=== PATIENT | female | born 1985 | race Asian ===

== ENCOUNTER → 2018-01-22 09:18 | Outpatient (POV) | payer BC, SELFPAY | PROVIDERS: Visit Provider Dentist | DX: Z00.00 Encounter for general adult medical examination without abnormal findings (principal) ==

== ENCOUNTER → 2018-05-26 14:02 | Outpatient (REF) | payer BC, SELFPAY ==
[2018-05-26 18:51] LABS: Free T4 (Free Thyroxine) 0.99 ng/dl (0.76-1.46); Thyroid Stimulating Hormone 1.14 uIU/ml (0.358-3.740)
== END ==
LOC: LAB 14:02
PROVIDERS: Visit Provider Nurse Practitioner Family
DX: R53.83 Other fatigue (principal)
CPT/HCPCS: 84439; 84443

== ENCOUNTER → 2019-03-11 11:44 | Outpatient (POV) | payer BC, SELFPAY | PROVIDERS: Visit Provider Dentist | DX: Z00.00 Encounter for general adult medical examination without abnormal findings (principal) ==

== ENCOUNTER 2023-01-09 17:09 | Emergency (ER) | payer OTHER, SELFPAY ==
--- NOTE | 2023-01-09 17:38 | EXP.UTC ---
Discharge Plan Disposition Patient Disposition: Home, Self-Care Condition: Good Prescriptions Prescriptions: No Action No Known Home Medications Referrals Follow up/Referrals: Huber Quinonez MD [Primary Care Provider] - See instructions Activity Restrictions/Add. Instructions Additional Instructions/Restrictions: Drink plenty of fluids. Take tylenol for pain or fever. Return if you begin to have difficulty breathing. Follow up with your regular doctor. GO TO THE ER FOR ANY WORSENING SYMPTOMS Quarantine until you know the results of your covid-19 test. Notify your school or workplace of your results and follow their instructions regarding return to work/school. Clinical Impressions Clinical Impression: Acute viral syndrome Instructions Patient Instructions: DI for Viral Syndrome [place]charge ED [place] [facility] [place] General Stated complaint: no tasteor smell both ears pain Time Seen by Provider: 01/09/23 17:35 History of Present Illness Provider Complaint: She states that for the past 4 days she has had fatigue, malaise, no taste, no smell, a dry cough, scratchy sore throat, and a very poor appetite. 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 Related Data Home Medications Medication Instructions Recorded Confirmed No Known Home Medications 09/25/21 09/25/21 Allergies Allergy/AdvReac Type Severity Reaction Status Date / Time No Known Allergies Allergy Verified 09/25/21 11:11 [facility] Disclaimer: The information contained in this section may have been updated after the patient was seen, as this information can be updated by other users. Social History Smoking Status: Never smoker alcohol intake: never substance use type: denies use current occupational status: employed Travel in the last 8 weeks: None ROS Obtained: Yes All systems reviewed & no additional complaints except as documented Constitutional Constitutional: Reports chills and Reports fever(s) Eyes Eyes: Denies eye discharge ENT Ears, Nose, Mouth, and Throat: Reports as per HPI Cardiovascular Cardiovascular: Denies chest pain Respiratory Respiratory: Denies chest congestion and Reports cough Gastrointestinal Gastrointestingal: Reports nausea; Denies abdominal pain, constipation, cramping, diarrhea or vomiting Musculoskeletal Musculoskeletal: Denies arthralgias Integumentary/Breasts Skin/Breast: Denies rash Neurologic Neurologic: Denies paresthesias Physical Exam General General appearance: alert and in no apparent distress Head Head exam: atraumatic, normocephalic and normal inspection Eye Eye exam: Present normal appearance, PERRL and EOMI ENT ENT exam: Present normal exam, normal oropharynx, mucous membranes moist, TM's normal bilaterally and normal external ear exam Neck Neck exam: Present normal inspection, full ROM and trachea midline; Absent meningismus or lymphadenopathy Chest Chest inspection: Present normal inspection and symmetric chest wall rise; Absent tenderness Respiratory Respiratory exam: Present normal lung sounds bilaterally; Absent respiratory distress Cardiovascular Cardiovascular exam: Present regular rate and normal rhythm; Absent JVD Abdominal Exam Abdominal exam: Present soft and normal bowel sounds; Absent distention, tenderness or guarding Extremities Exam Extremities exam: Present normal inspection, full ROM and normal capillary refill; Absent calf tenderness Back Exam Back exam: Present normal inspection; Absent tenderness Neurological Exam Neurological exam: Present alert and oriented X3 Psychiatric Psychiatric exam: Present normal affect and normal mood Skin Skin exam: Present warm, dry, intact and normal color Lymphatic Lymphatic Findings: no adenopathy Medical Decision Making Medical Records Medical records reviewed: No I reviewed the patient's medical
[2023-01-09 17:39] VITALS: BP 131/71; PULSE 77; RESP 18; TEMP 36.7; O2SAT 98; BMI 20.5
[2023-01-09 18:05] VITALS: BP 131/71; PULSE 77; RESP 18; TEMP 36.7; O2SAT 98
== END 2023-01-09 18:09 | disposition home or self-care (01) ==
LOC: UTC 18:11
PROVIDERS: Emergency Provider Nurse Practitioner Family; PCP Internal Medicine Adolescent Medicine
DX: R53.81 Other malaise (principal); R53.83 Other fatigue; R05.1 Acute cough; H92.03 Otalgia, bilateral; R07.0 Pain in throat; R50.9 Fever, unspecified; R63.0 Anorexia; B34.9 Viral infection, unspecified; Z20.822 Contact with and (suspected) exposure to COVID-19
CPT/HCPCS: 99212; 99213; C9803; G0463; U0003; U0005

== ENCOUNTER 2023-01-12 14:59 | Emergency (ER) | payer OTHER, SELFPAY ==
[2023-01-12 15:16] VITALS: BP 152/94; PULSE 72; RESP 18; TEMP 36.6; O2SAT 98; BMI 20.1
--- NOTE | 2023-01-12 16:20 | HMH.EDGENADL ---
Discharge Plan Disposition Patient Disposition: Home, Self-Care Condition: Good Prescriptions Prescriptions: New dexamethasone 6 mg tablet 10 mg PO Q24H 5 Days Qty: 9 0RF Rx Instructions: for up to 10 days ondansetron HCl 4 mg tablet 4 mg PO Q8H 4 Days Qty: 12 0RF Referrals Follow up/Referrals: Huber Quinonez MD [Primary Care Provider] - See instructions Activity Restrictions/Add. Instructions Additional Instructions/Restrictions: Take 10 mg Decadron daily for 5 days. Take Tylenol 1000 mg every 6 hours (4 times daily) and ibuprofen 400 mg every 6 hours (4 times daily) as needed with food and water to prevent GI upset and kidney damage. Follow-up with your primary care provider regarding this visit to the emergency department to establish care and ensure improvement in symptoms Clinical Impressions Clinical Impression: Post-COVID chronic fatigue Discharge ED Provider: Danny Mcmillan General Adult HPI General Chief complaint: Weakness Stated complaint: SOA, congestion, h/a Time Seen by Provider: 01/12/23 15:26 Mode of Arrival: Ambulatory Source of Information: Patient Limitations: Language Barrier Description of Symptoms (Recalled from ER Triage Doc. by RN): Presents via POV d/t feeling very tired. Covid + x 7-8 days. Requesting nutritional injection and/or protein'. History of Present Illness HPI narrative: This is an otherwise healthy 37-year-old female with recent diagnosis of COVID-19 7 days prior to arrival who is presenting with fatigue and body aches. Patient states that he is getting worse over the past 7 days. Intermittent shortness of breath that is not exertional and not associate with chest pain, cough, nausea, vomiting. She has been taking Tylenol throughout the day, but has had very little improvement. Has had associated decreased p.o. intake, although is tolerating p.o. intake and urinating and producing bowel movements per normal. No other concerning signs or symptoms and has not had fever in over a week. Related Data Previous Rx's Medication Instructions Recorded dexamethasone 6 mg tablet 10 mg PO Q24H 5 days #9 tabs 01/12/23 ondansetron HCl 4 mg tablet 4 mg PO Q8H 4 days #12 tabs 01/12/23 Allergies Allergy/AdvReac Type Severity Reaction Status Date / Time No Known Allergies Allergy Verified 09/25/21 11:11 [facility] Disclaimer: The information contained in this section may have been updated after the patient was seen, as this information can be updated by other users. Social History Smoking Status: Never smoker alcohol intake: never substance use type: denies use current occupational status: employed Travel in the last 8 weeks: None ROS Obtained: Yes All systems reviewed & no additional complaints except as documented Physical Exam General General appearance: alert and in no apparent distress Head Head exam: atraumatic, normocephalic and normal inspection Eye Eye exam: Present normal appearance, PERRL and EOMI ENT ENT exam: Present normal exam, normal oropharynx, mucous membranes moist, TM's normal bilaterally and normal external ear exam Neck Neck exam: Present normal inspection, full ROM and trachea midline; Absent meningismus or lymphadenopathy Chest Chest inspection: Present normal inspection and symmetric chest wall rise; Absent tenderness Respiratory Respiratory exam: Present normal lung sounds bilaterally; Absent respiratory distress Cardiovascular Cardiovascular exam: Present regular rate and normal rhythm; Absent JVD Abdominal Exam Abdominal exam: Present soft and normal bowel sounds; Absent distention, tenderness or guarding Extremities Exam Extremities exam: Present normal inspection, full ROM and normal capillary refill; Absent calf tenderness Back Exam Back exam: Present normal inspection; Absent tenderness Neurological Exam Neurological exam: Present alert and oriented X3 Psychia
[2023-01-12 16:29] VITALS: BP 134/88; PULSE 72; RESP 18; TEMP 36.6; O2SAT 98
== END 2023-01-12 16:30 | disposition home or self-care (01) ==
PROVIDERS: Emergency Provider Emergency Medicine; PCP Internal Medicine Adolescent Medicine
DX: R06.02 Shortness of breath (principal); R53.1 Weakness; M79.10 Myalgia, unspecified site; U09.9 Post COVID-19 condition, unspecified
CPT/HCPCS: 99283; 99284

== ENCOUNTER 2023-01-15 12:47 | Emergency (ER) | payer OTHER, SELFPAY ==
[2023-01-15 13:00] VITALS: BP 124/67; PULSE 69; RESP 20; TEMP 36.7; O2SAT 97; BMI 21.9
--- NOTE | 2023-01-15 13:06 | XR_ITS ---
FINAL REPORT CLINICAL HISTORY: cough COMPARISON: 10/06/2019 FINDINGS: Two views of the chest were obtained. The heart size and pulmonary vascularity are within normal limits. The mediastinum is normal. No acute pulmonary abnormality is identified. There is no pneumothorax. The bony thorax is intact. IMPRESSION: No active cardiopulmonary disease. Reviewed, Interpreted and Dictated by Dieter Subramanian III, MD Transcribed by Ly Elizabeth Authenticated and [facility]
--- NOTE | 2023-01-15 14:00 | EXP.UTC ---
Discharge Plan Disposition Patient Disposition: Home, Self-Care Condition: Good Prescriptions Prescriptions: New azithromycin [Zithromax] 250 mg tablet 250 mg PO UD DOSE PK Qty: 6 0RF Rx Instructions: Take two (2) tablets today, then one (1) tablet days #2 thru #5 methylprednisolone 4 mg Tablets,Dose Pack 4 mg PO DIRECTED Qty: 21 0RF benzonatate [benzonatate] 100 mg capsule 100 mg PO TIDP PRN (Reason: Cough) Qty: 30 0RF Referrals Follow up/Referrals: Huber Quinonez MD [Primary Care Provider] - See instructions Activity Restrictions/Add. Instructions Additional Instructions/Restrictions: Drink plenty of fluids. Take tylenol or ibuprofen for pain or fever. Take the medications as directed. Follow up with your regular doctor. GO TO THE ER FOR ANY WORSENING SYMPTOMS Clinical Impressions Clinical Impression: Acute bronchitis, Pleurisy Instructions Patient Instructions: Pleurisy, DI for Pleurisy Discharge ED Provider: Santiago Lacy [facility] General Stated complaint: body aches, lung pain Mode of Arrival: Ambulatory Source of Information: Patient Limitations: No Limitations Time Seen by Provider: 01/15/23 14:00 Description of Symptoms (Recalled from Triage Doc. by RN): hurts in linch, tired, body aches, covid 10 days ago HEENT Symptoms (Recalled from RN notes): Yes Resp Symptoms (Recalled from RN notes): No Skin Symptoms (Recalled from RN notes): No MS Symptoms (Recalled from RN notes): No Functional Status (Recalled from RN notes): n/a History of Present Illness Provider Complaint: She states that she has continued to have fatigue, cough, and pleuritic type chest pain. She tested negative for covid-19 on her last visit here. Related Data Previous Rx's Medication Instructions Recorded azithromycin 250 mg tablet 250 mg PO UD DOSE PK #6 tabs 01/15/23 (Zithromax) benzonatate 100 mg capsule 100 mg PO TIDP PRN Cough #30 caps 01/15/23 methylprednisolone 4 mg tablets in 4 mg PO DIRECTED #21 tabs 01/15/23 a dose pack Allergies Allergy/AdvReac Type Severity Reaction Status Date / Time No Known Allergies Allergy Verified 01/15/23 13:13 Worker's Comp Is this a Worker's Comp case?: No PFSH [facility] Disclaimer: The information contained in this section may have been updated after the patient was seen, as this information can be updated by other users. Social History Smoking Status: Never smoker alcohol intake: never substance use type: denies use current occupational status: employed Travel in the last 8 weeks: None ROS Obtained: Yes All systems reviewed & no additional complaints except as documented Constitutional Constitutional: Reports as per HPI, Reports chills and Denies fever(s) Eyes Eyes: Denies eye discharge ENT Ears, Nose, Mouth, and Throat: Denies dizziness, Denies otalgia and Denies sore throat Cardiovascular Cardiovascular: Denies chest pain Respiratory Respiratory: Denies shortness of breath, Reports chest congestion, Denies cough, Denies stridor and Denies wheezing Gastrointestinal Gastrointestingal: Denies nausea or vomiting Musculoskeletal Musculoskeletal: Reports system reviewed and no additional complaints, except as documented and Denies arthralgias Integumentary/Breasts Skin/Breast: Denies rash Neurologic Neurologic: Denies dizziness and Denies paresthesias Allergic/Immunologic Allergic/Immunologic: Denies wheezing Physical Exam General General appearance: alert and in no apparent distress Head Head exam: atraumatic, normocephalic and normal inspection Eye Eye exam: Present normal appearance, PERRL and EOMI ENT ENT exam: Present normal exam, normal oropharynx, mucous membranes moist, TM's normal bilaterally and normal external ear exam Neck Neck exam: Present normal inspection, full ROM and trachea midline; Absent meningismus or lymphadenopathy Chest Chest inspection: P
[2023-01-15 14:37] VITALS: BP 124/67; PULSE 69; RESP 20; TEMP 36.7; O2SAT 97
== END 2023-01-15 14:37 | disposition home or self-care (01) ==
PROVIDERS: Emergency Provider Nurse Practitioner Family; PCP Internal Medicine Adolescent Medicine
DX: J20.9 Acute bronchitis, unspecified (principal); R09.1 Pleurisy; R53.83 Other fatigue
CPT/HCPCS: 71046; 99212; 99214; G0463

== ENCOUNTER → 2023-03-24 12:15 | Outpatient (CLI) | payer OTHER, SELFPAY ==
--- NOTE | 2023-03-24 12:22 | XR_ITS ---
FINAL REPORT CLINICAL HISTORY: low back pain FINDINGS: 5 views of the lumbar spine were obtained. There is no evidence of fracture or dislocation. There is mild leftward curvature. The vertebral alignment is otherwise normal. Disc spaces are preserved. No paraspinous soft tissue abnormalities identified. IMPRESSION: No acute bony abnormality. Reviewed, Interpreted and Dictated by Dieter Subramanian III, MD Transcribed by Lynne Rosado Authenticated and [facility]
== END ==
PROVIDERS: PCP Internal Medicine Adolescent Medicine; Visit Provider Nurse Practitioner Family
DX: M54.50 Low back pain, unspecified (principal); M54.16 Radiculopathy, lumbar region
CPT/HCPCS: 72110

== ENCOUNTER → 2023-05-26 13:58 | Outpatient (CLI) | payer OTHER, SELFPAY ==
--- NOTE | 2023-05-26 14:02 | XR_ITS ---
FINAL REPORT CLINICAL HISTORY: bilateral knee pain FINDINGS: Left knee Three views were obtained. There is no acute fracture or dislocation. The joint spaces appear normal. No joint effusion is identified. No soft tissue abnormality is identified. IMPRESSION: No acute process. Reviewed, Interpreted and Dictated by Rashawn Nails MD Transcribed by Sara Witt Authenticated and [facility]
--- NOTE | 2023-05-26 14:02 | XR_ITS ---
FINAL REPORT CLINICAL HISTORY: bilateral knee pain FINDINGS: Right knee Three views were obtained. There is no acute fracture or dislocation. The joint spaces appear normal. No joint effusion is identified. No soft tissue abnormality is identified. IMPRESSION: No acute process. Reviewed, Interpreted and Dictated by Rashawn Nails MD Transcribed by Sara Witt Authenticated and [facility]
== END ==
PROVIDERS: PCP Internal Medicine Adolescent Medicine; Visit Provider Student in an Organized Health Care Education/Training Program
DX: M25.561 Pain in right knee (principal); M25.562 Pain in left knee
CPT/HCPCS: 73562

== ENCOUNTER 2023-06-22 10:21 | Emergency (ER) | payer OTHER, SELFPAY ==
[2023-06-22 10:35] VITALS: BP 157/88; PULSE 72; RESP 20; TEMP 36.8; O2SAT 96; BMI 22.0
[2023-06-22 10:47] LABS: UTC Influenza A Antigen Negative (Negative); UTC Influenza B Antigen Negative (Negative)
--- NOTE | 2023-06-22 10:51 | EXP.UTC ---
Discharge Plan Disposition Patient Disposition: Home, Self-Care Condition: Good Prescriptions Prescriptions: New ondansetron 4 mg tablet,disintegrating 4 mg PO Q8H PRN (Reason: nausea and vomiting) Qty: 10 0RF No Action cyclobenzaprine 10 mg tablet 10 mg PO HS naproxen 500 mg tablet 500 mg PO BID Qty: 20 0RF Referrals Follow up/Referrals: Provider,Referral, MD [Primary Care Provider] - See instructions Activity Restrictions/Add. Instructions Additional Instructions/Restrictions: *Monitor Temp, Over the counter Motrin or Tylenol as directed/as needed Tylenol every 4 hours and Motrin every 6 hours (as long as your family doctor has told you that you can take it) for fever or pain. and straight to ER if unable to lower temp less than 101.0 after medication given *Warm salt water gargles may help to soothe the throat *Throat Lozenges? *Warm fluids like tea with honey may help to soothe the throat? *Sleep elevated *Humidifier/Vaporizer Follow up IMMEDIATELY for new or worsening symptoms or no Noticeable improvement over the next 48-72 hours. 911 for difficulty breathing or swallowing You were tested for today for Upper Respiratory Panel with COVID19 your test result should be back in the next 24-48 hours, you may check your results on the [facility] [employer] [facility] Clinical Impressions Clinical Impression: Viral syndrome Stand Alone Forms Stand Alone Forms: Work/School Release Instructions Patient Instructions: DI for Viral Syndrome, Nausea and Vomiting-Adult Discharge ED Provider[place]oyda [place] [facility] [place] General Stated complaint: weakness, congestion, vomiting, unable to eat Mode of Arrival: Ambulatory Source of Information: Patient Limitations: No Limitations Time Seen by Provider: 06/22/23 10:51 Description of Symptoms (Recalled from Triage Doc. by RN): PATIENT C/O FATIGUE, DECREASED APPETITE, BACK ACHE, AND HEADACHE X 2 DAYS HEENT Symptoms (Recalled from RN notes): Yes Resp Symptoms (Recalled from RN notes): No Skin Symptoms (Recalled from RN notes): No MS Symptoms (Recalled from RN notes): No Functional Status (Recalled from RN notes): WNL History of Present Illness Provider Complaint: Patient states that for the last couple of days she has been having body aches, chills, nausea, upset stomach, fatigue and decreased appetite States that she feels like she did when she had COVID States that she has vomited several times today Related Data Home Medications Medication Instructions Recorded Confirmed cyclobenzaprine 10 mg tablet 10 mg PO HS 05/22/23 05/22/23 Previous Rx's Medication Instructions Recorded naproxen 500 mg tablet 500 mg PO BID #20 tabs 05/22/23 ondansetron 4 mg disintegrating 4 mg PO Q8H PRN nausea and 06/22/23 tablet vomiting #10 tabs Allergies Allergy/AdvReac Type Severity Reaction Status Date / Time No Known Allergies Allergy Verified 05/22/23 13:14 Worker's Comp Is this a Worker's Comp case?: No [facility] Disclaimer: The information contained in this section may have been updated after the patient was seen, as this information can be updated by other users. Medical History Acute bronchitis Acute viral syndrome Pleurisy Post-COVID chronic fatigue Social History Smoking Status: Never smoker alcohol intake: never substance use type: denies use current occupational status: employed Travel in the last 8 weeks: None ROS Obtained: Yes All systems reviewed & no additional complaints except as documented and Yes Systems reviewed as appropriate & no additional complaints except as documented Constitutional Constitutional: Reports system reviewed and no additional complaints, except as documented, Reports as per HPI, Reports body ache, Reports chills, Reports fatigue and Reports headache(s) ENT E
[2023-06-22 11:02] VITALS: BP 157/88; PULSE 72; RESP 20; TEMP 36.8; O2SAT 96
== END 2023-06-22 11:10 | disposition home or self-care (01) ==
PROVIDERS: Emergency Provider Nurse Practitioner
DX: R11.2 Nausea with vomiting, unspecified (principal); R53.83 Other fatigue; M79.18 Myalgia, other site; B34.9 Viral infection, unspecified
CPT/HCPCS: 87804; 99212; 99214; G0463

== ENCOUNTER 2024-12-08 09:18 | Outpatient (CLI) | payer OTHER, SELFPAY | END 2024-12-08 23:59 | disposition home or self-care (01) | LOC: LAB.DROPOF 12-10 09:20 | PROVIDERS: PCP Nurse Practitioner Family; Visit Provider Nurse Practitioner Family | DX: N39.0 Urinary tract infection, site not specified (principal) | CPT/HCPCS: 87086 ==

== ENCOUNTER 2024-12-13 07:47 | Outpatient (RCR) | payer OTHER, SELFPAY ==
--- NOTE | 2024-12-13 09:48 | HMH.PTOPEV ---
PT Outpatient Evaluation Rehab PT Outpatient Evaluation Start: 12/13/24 09:22 Freq: Status: Active Protocol: Document 12/13/24 09:22 BRANDT (Rec: 12/13/24 09:47 BRANDT [id number]) E-signed By Zeke Anderson, PT Outpatient Therapy Subjective History Subjective History Pt is a 39 yof who is referred to [facility] outpatient Physical Therapy with complaints of low back pain that occasionally refers into her left lower extremity. 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 She reports that her back often feels, too tight. She is an aquaculture worker of a local restaurant. She reports that her pain is worsened with bending, squatting, lifting, standing, walking and sitting for longer periods. Pt denies any other significant PMH or surgeries. New diagnosis of cancer in past 12 No months? Chief Complaint Pain Symptom Type Sharp Symptoms Relieved By Heat Symptoms Aggravated By Sitting,Standing,Bending/ Stooping,Physical Activity, Twisting,Walking,Lifting Prior Functional Limitations None Current Functional Limitations Lifting,Housework,Standing, Sitting,Walking,Bending/ Stooping Symptom Description Constant but Variable Level of pain today (0-10) 4 Pain scale - at its best (0-10) 2 Pain scale - at its worst (0-10) 8 Lumbopelvic Eval Posture Thoracic Spine Posture Standing Position Neutral Lumbar Spine Posture Standing Position Neutral Palapation tenderness left lumbar spinal tenderness Yes: 3/4 to L2-L3 paraspinal tenderness Yes: 3/4 to L2-L3 Accessory Movement L2 left L3 left Range of Motion Lumbar Spine Active Flexion Range of 50% Motion (degrees) Lumbar Spine Active Extension Range of 50% Motion (degrees) Left Lumbar Spine Lateral Flexion Active 50% Range of Motion (degrees) Right Lumbar Spine Lateral Flexion 50% Active Range of Motion (degrees) Lumbar Spine ROM Limitations Soft Tissue Tightness,Pain Manual Muscle Test Bilateral Knee Extension Strength Grade 4 Good Knee Flexion Strength Grade 4 Good Hip Flexion Strength Grade 3+ Fair+ Hip Abduction Strength Grade 3+ Fair+ Hip Adduction Strength Grade 3+ Fair+ Hip Extension Strength Grade 3+ Fair+ DTR Rt Patellar 2+ Lt Patellar 2+ Rt Gastroc/Soleus 1+ Lt Gastroc/Soleus 1+ Altered Sensation Bilateral LE Dermatome Level L2,L3,L4,L5,S1 Comment Intact Special Tests Lumbar Spine Screen Positive Anterior/Posterior Rib Compression Test Negative Left Rib Inspiration/Expiration Breathing Negative Test Hip Sitting Root Test Negative Left,Negative Right Forward Bending Test- Sitting Negative Right Hip Scouring (Quadrant) Test Negative Left,Negative Right Hip Vijay (KATHLEEN) Test Negative Left,Negative Right Sciatic Nerve Tension Test Negative Left Hip 90-90 Straight Leg Raise Test Negative Right Hip Thalia's Test Negative Left,Negative Right Sacroiliac Joint Compression Test Negative Left,Negative Right Sacroiliac Joint Distraction Test Negative Left,Negative Right Oswestry Index Section 1 Pain Intensity The pain is severe and does not vary much Section 2 Personal Care (Washing,Dresing) my way of washing or dressing even though it causes some pain Section 3 Lifting I can only lift very light weights at most Section 4 Walking I cannot walk at all without increasing pain Section 5 Sitting Pain prevents me from sitting for more than 1/2 hour Section 6 Standing I cannot stand more than 1/2 hour without increasing pain Section 7 Sleeping Because of my pain, my normal night's sleep is less than 4 hours Section 8 Social Life Pain has restricted my social life and I do not go out often Section 9 Traveling I get some pain when traveling , but none of my usual forms of travel m Section 10 Changing Degreee of Pain My pain is neither getting better or worse Score and Risk Level Oswestry Sc 32 Oswestry Risk Level Severe Disability Outpatient Therapy Assessment Impairments Problems/Impairmments Palpation Tenderness,Impaired Range of Motion,Impaired Strength,Impaired Walking, Impaired Standing,Impaired Sitting,Impaired Lifting, Impaired Bending,Subjective C/ O Pain Prognosis Rehab Potential Good Comment w HEP Compliance Clinical Impression Consistent with Diagnosis Yes Consistent with LBP with referred pain Additional details: Pt presents with signs and symptoms consistent with LBP with referred pain. Pt would benefit from skilled PT in order to address her above impairments, prevent further injury, improve quality of life and promote a return to her PLOF. Short Term Goals Number of Weeks 4 Decreased Palpation Tenderness Yes: 1-2/4 to L2-L3 Increase Range of Motion Yes: 75% WNL Lumbar AROM Increase Strength Yes: 4/5 B hips/knees MMT Increase Ability to Stand Yes: 30 minutes without increasing pain Increase Ability to Sit Yes: 30 minutes without increasing pain Restore Ability to Lift Objects to Waist Yes: 10# without increasing Level pain Improve Oswestry Score Yes: Mod Disability Decrease Subjective C/O Pain Yes: 5/10 with above assessment Patient to be Ind w/ HEP Yes Enamel Buffer Goals Number of Weeks 8 Decreased Palpation Tenderness Yes: 0-1/4 to L2-L3 Increase Range of Motion Yes: 75-100% WNL AROM of Lumbar Spine Increase Strength Yes: 4+/5 to B hips/knees Increase Ability to Stand Yes: 1 hour without increasing pain Increase Ability to Sit Yes: 1 hour without increasing pain Restore Ability to Lift Objects to Waist Yes: 20# without increasing Level pain Improve Oswestry Score Yes: Mild Disability Decrease Subjective C/O Pain Yes: 2-10 with above assessment Patient to be Ind w/ Advanced HEP Yes Outpatient Therapy Plan of Care Treatment Plan May Include Therapeutic Exercise Including Home Yes Exercise Program Manual Therapy Techniques Yes Neuromuscular Re-education Yes Therapeutic Activities to Return to Yes Previous Functional/Work Level Gait Training Yes ADL/Self Care Education Yes Mechanical Traction Yes Dry Needling Yes Thermal Modalities Yes Electrical Stimulation Yes Manual Lymphatic Drainage Yes Eval/Re-Eval Yes Frequency Times per week 2 Duration Number of Weeks 8 Addendums This patient is a candidate for social No or vocational rehab? Patient/Guardian verbally acknowledges Yes understanding of treatment program and consents to further treatment? Patient/Guardian verbally acknowledges Yes understanding of diagnosis, prognosis and goals for treatment? Eval Complexity PT Charges 52544 - Moderate Complexity Shoulder/Elbow Eval Shoulder Objective Measurements Elbow Objective Measurements PHYSICIAN CERTIFICATION: I certify the specified therapy services for Zenaida Maher are required, authorized, and reviewed every 30 days.
== END 2024-12-13 23:59 | disposition home or self-care (01) ==
LOC: PT 07:47
PROVIDERS: PCP Nurse Practitioner Family; Visit Provider Nurse Practitioner Family
DX: M54.50 Low back pain, unspecified (principal); R29.898 Other symptoms and signs involving the musculoskeletal system
CPT/HCPCS: 97163

== ENCOUNTER 2025-01-10 13:55 | Outpatient (CLI) | payer OTHER, SELFPAY ==
--- NOTE | 2025-01-10 14:10 | US_ITS ---
PROCEDURE: US TRANSVAGINAL CLINICAL INDICATION: pelvic pain COMPARISON: No exams were available for comparison FINDINGS: Transvaginal sonographic images of the pelvis were obtained. UTERUS: 10.1cm x 7.8cmx 4.8 cm anteverted with a combined endometrial thickness of 16.8mm. The endometrium appears in homogeneous. She has a 1.4 cm nabothian cyst in the cervix. There is a 2nd smaller nabothian cyst anteriorly. LEFT OVARY: 2.8 cmx1.7 cmx1.8cm with a volume of 4.5ml. There is a dominant follicle measuring 1.1 cm x 0.8 cm x 1.0 cm. There are multiple small peripheral follicles. RIGHT OVARY: 2.5cmx 3.3cmx2.5cm with a volume of 10.5ml. There are multiple small peripheral follicles. Both ovaries are seen and appear normal. Doppler flow to both ovaries are seen. There is no fluid in the cul-de-sac. IMPRESSION: 1. Anteverted, bulky uterus. The endometrium is thickened measuring up to 16.8 mm and the endometrium has an in homogeneous appearance. 2. The myometrial/endometrial margin appears irregular and could represent adenomyosis. 3. Both ovaries are seen and appear normal. There is a dominant follicle in the left ovary. Both ovaries have multiple small peripheral follicles. 4. No fluid in the cul-de-sac. Dictated by: Tejas Sam MD 01/10/2025 16:31 Tejas Sam MD in [facility] 01/10/2025 16:31
--- NOTE | 2025-01-10 14:10 | US_ITS ---
FINAL REPORT CLINICAL HISTORY: N13.30 - Unspecified hydronephrosis COMPARISON: None FINDINGS: RENAL ULTRASOUND Ultrasound images of the kidneys were obtained. The right kidney measures 11.7 cm in length. It is normal echogenicity. There is no hydronephrosis. The left kidney measures 12.0 cm in length. It is normal echogenicity. There is no hydronephrosis. IMPRESSION: Normal renal ultrasound. Reviewed, Interpreted and Dictated by Rene Tate MD Transcribed by Rocío Gustafson Authenticated and [facility]
[2025-01-10 14:52] LABS: Basophils # 0.1 K/mm3 (0-0.2); Basophils % 1.3 % (0.1-2.0); Eosinophils # 0.2 K/mm3 (0.0-0.4); Eosinophils % 2.5 % (0.1-12.0); Hematocrit 40.3 % (37.0-47.0); Hemoglobin 13.3 g/dL (12.2-16.2); Lymphocytes # 1.6 K/mm3 (0.7-4.5); Lymphocytes % 25.3 % (10-50); Mean Platelet Volume 9.1 fl (7.4-10.4); Monocytes # 0.5 K/mm3 (0.1-1.0); Monocytes % 7.6 % (1.7-9.3); Platelet Count 273 K/mm3 (142-424); Red Blood Count 4.58 M/mm3 (4.20-5.40); Red Cell Distribution Width 12.4 % (11.5-17.5); White Blood Count 6.3 K/mm3 (4.8-10.8)
[2025-01-10 15:06] LABS: Chloride 105 mmol/L (98-107)
[2025-01-10 15:07] LABS: Albumin Level 4.8 g/dl (3.5-5.0); Potassium 3.9 mmoL/L (3.5-5.1); Sodium 139 mmol/L (136-145)
[2025-01-10 15:10] LABS: Alanine Aminotransferase 22 U/L (12-78); Albumin/Globulin Ratio 2.2 (1.1-1.8); Alkaline Phosphatase 51 U/L (38-126); Anion Gap 8.9 mEq/L (5-15); Aspartate Amino Transferase 21 U/L (14-36); Bilirubin,Total 0.7 mg/dl (0.2-1.3); Blood Urea Nitrogen 13 mg/dl (7-17); Calcium 9.5 mg/dl (8.4-10.2); Carbon Dioxide 29 mmol/L (22.0-30.0); Estimated Glomerular Filt Rate 136 ml/min (>60); GFR (African American) 165 ML/MIN (>60); Globulin 2.2 g/dL (1.3-3.2); Glucose 120 mg/dl (74-100)
== END 2025-01-10 23:59 | disposition home or self-care (01) ==
LOC: RAD 13:56
PROVIDERS: PCP Internal Medicine Adolescent Medicine; Visit Provider Obstetrics & Gynecology
DX: R10.2 Pelvic and perineal pain (principal); N20.0 Calculus of kidney; N13.30 Unspecified hydronephrosis
CPT/HCPCS: 36415; 76770; 76830; 80053; 85025